=== PATIENT | male | born 1980 | race African-American/Black ===

== ENCOUNTER → 2016-09-28 | Outpatient (CLI) | payer OTHER | LOC: MHCPAIN 11:36 | DX: G89.29 Other chronic pain (principal); M54.12 Radiculopathy, cervical region; M47.812 Spondylosis without myelopathy or radiculopathy, cervical region | CPT/HCPCS: G0463 ==

== ENCOUNTER → 2016-10-04 | Outpatient (CLI) | payer OTHER | LOC: MHCPAIN 12:23 | DX: M50.121 Cervical disc disorder at C4-C5 level with radiculopathy (principal) | CPT/HCPCS: J1100; Q9967 ==

== ENCOUNTER → 2016-10-19 | Outpatient (CLI) | payer OTHER | LOC: MHCPAIN 08:52 | DX: G89.29 Other chronic pain (principal); M50.90 Cervical disc disorder, unspecified, unspecified cervical region; M54.12 Radiculopathy, cervical region; F17.210 Nicotine dependence, cigarettes, uncomplicated | CPT/HCPCS: G0463 ==